=== PATIENT | male | born 2000 | race Caucasian/White ===

== ENCOUNTER 2021-03-14 16:28 | Inpatient (IN) | payer OTHER ==
[2021-03-14 17:49] VITALS: BMI 23.0
[2021-03-14] MEDS ORDERED: MAGNESIUM HYDROX 2400MG/30ML ORAL SUSPENSION 30 ML CUP PO PRN (23:01)
[2021-03-14] MEDS ORDERED: MAG HYDROX/AL HYDROX/SIMETH 30 ML UNIT-DOSE CUP PO PRN (23:01)
[2021-03-14] MEDS ORDERED: ACETAMINOPHEN 325 MG TABLET (FP) PO PRN (23:01)
[2021-03-14] MEDS ORDERED: guaiFENesin 200 MG/10 ML 10 ML UNIT-DOSE CUPS PO PRN (23:01)
[2021-03-14] MEDS ORDERED: LOPERAMIDE HCL 2 MG CAPSULE PO PRN (23:01)
[2021-03-14] MEDS ORDERED: MAGNESIUM CITRATE 300 ML BOTTLE PO PRN (23:01)
[2021-03-14] MEDS ORDERED: P-EPHED 60MG/TRIPROLIDI 2.5MG TABLET PO PRN (23:01)
[2021-03-14] MEDS ORDERED: cloNIDine HCL 0.1 MG TABLET PO ONE (23:05)
[2021-03-15] MEDS ORDERED: cloNIDine HCL 0.1 MG TABLET ONE (00:48)
[2021-03-15] MEDS: MELATONIN 5 MG TABLETS PO SCH (00:51)
[2021-03-15] MEDS: IBUPROFEN 400 MG TABLET (FP) PO PRN (01:55)
[2021-03-15] MEDS ORDERED: TUBERCULIN PPD 5 TU/0.1ML VIAL ID ONE ×2 (02:25→04:16)
[2021-03-15] MEDS: hydrOXYzine PAMOATE 25 MG CAPSULE (FP) PO PRN (02:35)
[2021-03-15] MEDS ORDERED: methaDONE HCL 10 MG TABLET PO SCH (09:15)
[2021-03-15] MEDS ORDERED: methaDONE HCL 10 MG TABLET ONE (09:42)
[2021-03-15] MEDS ORDERED: methaDONE HCL 40 MG DISPERSABLE TABLET ONE (09:42)
[2021-03-15] MEDS ORDERED: methaDONE 40 MG, methaDONE 20 MG PO ONE (09:45)
[2021-03-15 10:46] LABS: HEMATOCRIT 39.4 % (35.4-49); HEMOGLOBIN 13.6 GM/dL (11.7-16.9); MCH 31.9 pg (25.7-33.7); MCHC 34.7 g/dl (32.0-35.9); MEAN CELL VOLUME 92.1 fl (80-96); MEAN PLT VOLUME 7.4 fl (7.5-11.1); PLATELET COUNT 273 10^3/uL (134-434); RBC 4.28 M/mm3 (4.00-5.60); WHITE BLOOD COUNT 3.4 K/mm3 (4.0-10.0)
[2021-03-15 10:56] LABS: BLOOD UREA NITROGEN 14.8 mg/dL (7-18); CALCIUM 8.7 mg/dL (8.5-10.1)
[2021-03-15 10:57] LABS: ALBUMIN 3.1 g/dl (3.4-5.0)
[2021-03-15 11:01] LABS: BILIRUBIN,TOTAL 0.2 mg/dL (0.2-1); CREATININE 0.6 mg/dL (0.55-1.3)
[2021-03-15] MEDS: NICOTINE 21 MG/24 HOURS TOPICAL PATCH TD SCH (11:50)
[2021-03-15] MEDS: PRENATAL VITAMINS W/ FOLIC ACID TABLET (FP) PO SCH (11:50)
[2021-03-15 12:47] LABS: HIV INTERPRETATION NEGATIVE (NEGATIVE)
[2021-03-15] MEDS: busPIRone HCL 10 MG TABLET (FP) PO SCH ×2 (13:48→21:17)
[2021-03-15] MEDS: SERTRALINE HCL 50 MG TABLET (FP) PO SCH (13:48)
[2021-03-15] MEDS: SUVOREXANT 10 MG TABLET PO PRN (21:13)
[2021-03-15] MEDS: THIAMINE HCL 100 MG TABLET (FP) PO SCH (21:17)
[2021-03-15] MEDS: PRAZOSIN HCL 1 MG CAPSULE PO SCH (23:09)
[2021-03-16] MEDS: methaDONE 40 MG, methaDONE 20 MG PO SCH (06:50)
[2021-03-16] MEDS ORDERED: methaDONE HCL 10 MG TABLET ONE (06:50)
[2021-03-16] MEDS ORDERED: methaDONE HCL 40 MG DISPERSABLE TABLET ONE (06:50)
[2021-03-16] MEDS: hydrOXYzine PAMOATE 25 MG CAPSULE (FP) PO PRN (06:52)
[2021-03-16] MEDS: PRENATAL VITAMINS W/ FOLIC ACID TABLET (FP) PO SCH (09:50)
[2021-03-16] MEDS: NICOTINE 21 MG/24 HOURS TOPICAL PATCH TD SCH (09:50)
[2021-03-16] MEDS: NICOTINE 10 MG CARTRIDGE (INHALER) IH PRN ×2 (09:51→16:59)
[2021-03-16] MEDS: busPIRone HCL 10 MG TABLET (FP) PO SCH ×2 (09:51→21:53)
[2021-03-16] MEDS: SERTRALINE HCL 50 MG TABLET (FP) PO SCH (09:51)
[2021-03-16 17:31] LABS: PH,URINE 5.5 (5.0-8.0); URINE APPEARANCE CLEAR; URINE BILIRUBIN NEGATIVE (NEGATIVE); URINE COLOR YELLOW; URINE GLUCOSE (UA) NEGATIVE (NEGATIVE); URINE KETONE NEGATIVE (NEGATIVE); URINE LEUK ESTERASE NEGATIVE (NEGATIVE); URINE NITRITE NEGATIVE (NEGATIVE); URINE PROTEIN NEGATIVE (NEGATIVE); URINE UROBILINOGEN 0.2 mg/dL (0.2-1.0)
[2021-03-16] MEDS ORDERED: PT OWN MED DRAWER 7, Y5N ONE (19:22)
[2021-03-16] MEDS: THIAMINE HCL 100 MG TABLET (FP) PO SCH (21:52)
[2021-03-16] MEDS: PRAZOSIN HCL 1 MG CAPSULE PO SCH (21:53)
[2021-03-16] MEDS: SUVOREXANT 10 MG TABLET PO PRN (21:54)
[2021-03-17] MEDS ORDERED: methaDONE HCL 40 MG DISPERSABLE TABLET ONE (03:17)
[2021-03-17] MEDS ORDERED: methaDONE HCL 10 MG TABLET ONE (03:17)
[2021-03-17] MEDS: methaDONE 40 MG, methaDONE 20 MG PO SCH (06:40)
[2021-03-17] MEDS: NICOTINE 10 MG CARTRIDGE (INHALER) IH PRN ×3 (06:41→19:44)
[2021-03-17] MEDS: PRENATAL VITAMINS W/ FOLIC ACID TABLET (FP) PO SCH (09:54)
[2021-03-17] MEDS: busPIRone HCL 10 MG TABLET (FP) PO SCH ×2 (09:55→21:54)
[2021-03-17] MEDS: NICOTINE 21 MG/24 HOURS TOPICAL PATCH TD SCH (09:55)
[2021-03-17] MEDS: SERTRALINE HCL 50 MG TABLET (FP) PO SCH (09:55)
[2021-03-17] MEDS: hydrOXYzine PAMOATE 25 MG CAPSULE (FP) PO PRN ×2 (09:56→21:54)
[2021-03-17 11:22] LABS: INR 0.94 (0.83-1.09); PROTHROMBIN TIME (PATIENT) 11.6 SEC (9.7-13.0)
[2021-03-17 11:37] LABS: CALCIUM 9.3 mg/dL (8.5-10.1)
[2021-03-17 11:38] LABS: ALBUMIN 3.6 g/dl (3.4-5.0); BLOOD UREA NITROGEN 15.6 mg/dL (7-18)
[2021-03-17 11:41] LABS: CREATININE 0.8 mg/dL (0.55-1.3)
[2021-03-17 11:43] LABS: BILIRUBIN,TOTAL 0.3 mg/dL (0.2-1); TOT PROT 6.9 g/dl (6.4-8.2)
[2021-03-17] MEDS ORDERED: PT OWN MED DRAWER 7, Y5N ONE (20:05)
[2021-03-17] MEDS: SUVOREXANT 10 MG TABLET PO PRN (21:53)
[2021-03-17] MEDS: THIAMINE HCL 100 MG TABLET (FP) PO SCH (21:54)
[2021-03-17] MEDS: PRAZOSIN HCL 1 MG CAPSULE PO SCH (21:54)
[2021-03-18] MEDS ORDERED: methaDONE HCL 10 MG TABLET ONE (03:29)
[2021-03-18] MEDS ORDERED: methaDONE HCL 40 MG DISPERSABLE TABLET ONE (03:29)
[2021-03-18] MEDS: NICOTINE 10 MG CARTRIDGE (INHALER) IH PRN ×3 (06:44→22:36)
[2021-03-18] MEDS: methaDONE 40 MG, methaDONE 20 MG PO SCH (06:45)
[2021-03-18] MEDS: NICOTINE POLACRILEX 2 MG GUM BUC PRN (06:45)
[2021-03-18] MEDS: busPIRone HCL 10 MG TABLET (FP) PO SCH ×2 (09:51→22:34)
[2021-03-18] MEDS: PRENATAL VITAMINS W/ FOLIC ACID TABLET (FP) PO SCH (09:51)
[2021-03-18] MEDS: SERTRALINE HCL 50 MG TABLET (FP) PO SCH (09:51)
[2021-03-18] MEDS: NICOTINE 21 MG/24 HOURS TOPICAL PATCH TD SCH (09:51)
[2021-03-18] MEDS: THIAMINE HCL 100 MG TABLET (FP) PO SCH (22:34)
[2021-03-18] MEDS: PRAZOSIN HCL 1 MG CAPSULE PO SCH (22:34)
[2021-03-18] MEDS: hydrOXYzine PAMOATE 25 MG CAPSULE (FP) PO PRN (22:35)
[2021-03-18] MEDS: MELATONIN 5 MG TABLETS PO SCH (22:35)
[2021-03-19] MEDS ORDERED: methaDONE HCL 10 MG TABLET ONE (03:24)
[2021-03-19] MEDS ORDERED: methaDONE HCL 40 MG DISPERSABLE TABLET ONE (03:25)
[2021-03-19] MEDS: NICOTINE 10 MG CARTRIDGE (INHALER) IH PRN ×2 (06:39→22:19)
[2021-03-19] MEDS: methaDONE 40 MG, methaDONE 20 MG PO SCH (06:40)
[2021-03-19] MEDS: hydrOXYzine PAMOATE 25 MG CAPSULE (FP) PO PRN ×2 (06:40→22:18)
[2021-03-19] MEDS: PRENATAL VITAMINS W/ FOLIC ACID TABLET (FP) PO SCH (09:58)
[2021-03-19] MEDS: NICOTINE 21 MG/24 HOURS TOPICAL PATCH TD SCH (09:59)
[2021-03-19] MEDS: busPIRone HCL 10 MG TABLET (FP) PO SCH ×2 (09:59→22:18)
[2021-03-19] MEDS: SERTRALINE HCL 50 MG TABLET (FP) PO SCH (09:59)
[2021-03-19] MEDS: PRAZOSIN HCL 1 MG CAPSULE PO SCH (22:17)
[2021-03-19] MEDS: THIAMINE HCL 100 MG TABLET (FP) PO SCH (22:18)
[2021-03-20] MEDS ORDERED: methaDONE HCL 10 MG TABLET ONE (02:36)
[2021-03-20] MEDS ORDERED: methaDONE HCL 40 MG DISPERSABLE TABLET ONE (02:37)
[2021-03-20] MEDS: methaDONE 40 MG, methaDONE 20 MG PO SCH (06:45)
[2021-03-20] MEDS: PRENATAL VITAMINS W/ FOLIC ACID TABLET (FP) PO SCH (09:35)
[2021-03-20] MEDS: SERTRALINE HCL 50 MG TABLET (FP) PO SCH (09:36)
[2021-03-20] MEDS: NICOTINE 10 MG CARTRIDGE (INHALER) IH PRN ×3 (09:36→21:36)
[2021-03-20] MEDS: NICOTINE 21 MG/24 HOURS TOPICAL PATCH TD SCH (09:36)
[2021-03-20] MEDS: busPIRone HCL 10 MG TABLET (FP) PO SCH ×2 (09:36→21:28)
[2021-03-20] MEDS: hydrOXYzine PAMOATE 25 MG CAPSULE (FP) PO PRN ×2 (09:37→21:29)
[2021-03-20] MEDS: THIAMINE HCL 100 MG TABLET (FP) PO SCH (21:28)
[2021-03-21] MEDS: PRAZOSIN HCL 1 MG CAPSULE PO SCH ×2 (00:24→21:23)
[2021-03-21] MEDS ORDERED: methaDONE HCL 10 MG TABLET ONE ×2 (03:02→07:53)
[2021-03-21] MEDS ORDERED: methaDONE HCL 40 MG DISPERSABLE TABLET ONE ×2 (03:03→07:54)
[2021-03-21] MEDS: NICOTINE 10 MG CARTRIDGE (INHALER) IH PRN ×2 (07:03→21:29)
[2021-03-21] MEDS ORDERED: methaDONE HCL 10 MG TABLET PO ONE (07:21)
[2021-03-21] MEDS ORDERED: methaDONE 40 MG, methaDONE 20 MG PO ONE (08:00)
[2021-03-21] MEDS: methaDONE 40 MG, methaDONE 20 MG PO SCH (08:06)
[2021-03-21] MEDS: NICOTINE 21 MG/24 HOURS TOPICAL PATCH TD SCH (09:56)
[2021-03-21] MEDS: PRENATAL VITAMINS W/ FOLIC ACID TABLET (FP) PO SCH (09:56)
[2021-03-21] MEDS: busPIRone HCL 10 MG TABLET (FP) PO SCH ×2 (09:57→21:23)
[2021-03-21] MEDS: hydrOXYzine PAMOATE 25 MG CAPSULE (FP) PO PRN ×2 (09:57→21:25)
[2021-03-21] MEDS: SERTRALINE HCL 50 MG TABLET (FP) PO SCH (09:57)
[2021-03-21] MEDS ORDERED: PT OWN MED DRAWER 7, Y5N ONE (19:31)
[2021-03-21] MEDS: THIAMINE HCL 100 MG TABLET (FP) PO SCH (21:23)
[2021-03-21] MEDS ORDERED: SUVOREXANT 10 MG TABLET PO PRN (22:00)
[2021-03-22] MEDS ORDERED: methaDONE HCL 10 MG TABLET ONE (02:50)
[2021-03-22] MEDS ORDERED: methaDONE HCL 40 MG DISPERSABLE TABLET ONE (02:50)
[2021-03-22] MEDS: methaDONE 40 MG, methaDONE 20 MG PO SCH (06:19)
[2021-03-22] MEDS: NICOTINE 10 MG CARTRIDGE (INHALER) IH PRN ×2 (06:22→22:14)
[2021-03-22] MEDS: NICOTINE 21 MG/24 HOURS TOPICAL PATCH TD SCH (09:48)
[2021-03-22] MEDS: SERTRALINE HCL 50 MG TABLET (FP) PO SCH (09:48)
[2021-03-22] MEDS: busPIRone HCL 10 MG TABLET (FP) PO SCH ×2 (09:48→22:13)
[2021-03-22] MEDS: PRENATAL VITAMINS W/ FOLIC ACID TABLET (FP) PO SCH (09:48)
[2021-03-22] MEDS: hydrOXYzine PAMOATE 25 MG CAPSULE (FP) PO PRN ×2 (09:49→22:14)
[2021-03-22] MEDS: PRAZOSIN HCL 1 MG CAPSULE PO SCH (22:11)
[2021-03-22] MEDS: QUEtiapine FUMARATE 50 MG TABLET PO SCH (22:13)
[2021-03-22] MEDS: THIAMINE HCL 100 MG TABLET (FP) PO SCH (22:14)
[2021-03-23] MEDS ORDERED: methaDONE HCL 10 MG TABLET ONE (05:37)
[2021-03-23] MEDS ORDERED: methaDONE HCL 40 MG DISPERSABLE TABLET ONE (05:37)
[2021-03-23] MEDS: methaDONE 40 MG, methaDONE 20 MG PO SCH (06:09)
[2021-03-23] MEDS: NICOTINE 10 MG CARTRIDGE (INHALER) IH PRN ×3 (06:10→21:18)
[2021-03-23] MEDS: NICOTINE POLACRILEX 2 MG GUM BUC PRN (06:10)
[2021-03-23] MEDS: NICOTINE 21 MG/24 HOURS TOPICAL PATCH TD SCH (10:01)
[2021-03-23] MEDS: SERTRALINE HCL 50 MG TABLET (FP) PO SCH (10:01)
[2021-03-23] MEDS: busPIRone HCL 10 MG TABLET (FP) PO SCH ×2 (10:01→21:16)
[2021-03-23] MEDS: PRENATAL VITAMINS W/ FOLIC ACID TABLET (FP) PO SCH (10:01)
[2021-03-23] MEDS: hydrOXYzine PAMOATE 25 MG CAPSULE (FP) PO PRN ×2 (10:02→21:17)
[2021-03-23] MEDS ORDERED: PT OWN MED DRAWER 7, Y5N ONE (21:16)
[2021-03-23] MEDS: THIAMINE HCL 100 MG TABLET (FP) PO SCH (21:16)
[2021-03-23] MEDS: QUEtiapine FUMARATE 50 MG TABLET PO SCH (21:16)
[2021-03-23] MEDS: PRAZOSIN HCL 1 MG CAPSULE PO SCH (21:16)
[2021-03-24] MEDS ORDERED: methaDONE HCL 40 MG DISPERSABLE TABLET ONE (03:17)
[2021-03-24] MEDS ORDERED: methaDONE HCL 10 MG TABLET ONE (03:17)
[2021-03-24] MEDS: methaDONE 40 MG, methaDONE 20 MG PO SCH (07:08)
[2021-03-24] MEDS: NICOTINE 10 MG CARTRIDGE (INHALER) IH PRN ×2 (07:11→21:19)
[2021-03-24] MEDS: busPIRone HCL 10 MG TABLET (FP) PO SCH ×2 (10:22→21:15)
[2021-03-24] MEDS: PRENATAL VITAMINS W/ FOLIC ACID TABLET (FP) PO SCH (10:22)
[2021-03-24] MEDS: SERTRALINE HCL 50 MG TABLET (FP) PO SCH (10:22)
[2021-03-24] MEDS: NICOTINE 21 MG/24 HOURS TOPICAL PATCH TD SCH (10:23)
[2021-03-24] MEDS: hydrOXYzine PAMOATE 25 MG CAPSULE (FP) PO PRN ×2 (10:24→21:16)
[2021-03-24] MEDS ORDERED: PT OWN MED DRAWER 7, Y5N ONE ×2 (19:52→21:15)
[2021-03-24] MEDS: PRAZOSIN HCL 1 MG CAPSULE PO SCH (21:14)
[2021-03-24] MEDS: THIAMINE HCL 100 MG TABLET (FP) PO SCH (21:15)
[2021-03-24] MEDS: QUEtiapine FUMARATE 50 MG TABLET PO SCH (21:15)
[2021-03-25] MEDS ORDERED: methaDONE HCL 40 MG DISPERSABLE TABLET ONE (02:54)
[2021-03-25] MEDS ORDERED: methaDONE HCL 10 MG TABLET ONE (02:54)
[2021-03-25] MEDS: methaDONE 40 MG, methaDONE 20 MG PO SCH (06:21)
[2021-03-25] MEDS: NICOTINE 10 MG CARTRIDGE (INHALER) IH PRN ×2 (06:23→22:27)
[2021-03-25] MEDS: SERTRALINE HCL 50 MG TABLET (FP) PO SCH (09:49)
[2021-03-25] MEDS: busPIRone HCL 10 MG TABLET (FP) PO SCH ×2 (09:49→22:25)
[2021-03-25] MEDS: hydrOXYzine PAMOATE 25 MG CAPSULE (FP) PO PRN ×2 (09:49→22:26)
[2021-03-25] MEDS: PRENATAL VITAMINS W/ FOLIC ACID TABLET (FP) PO SCH (09:49)
[2021-03-25] MEDS: NICOTINE 21 MG/24 HOURS TOPICAL PATCH TD SCH (09:50)
[2021-03-25] MEDS ORDERED: PT OWN MED DRAWER 7, Y5N ONE (19:14)
[2021-03-25] MEDS: PRAZOSIN HCL 1 MG CAPSULE PO SCH (22:25)
[2021-03-25] MEDS: QUEtiapine FUMARATE 50 MG TABLET PO SCH (22:25)
[2021-03-25] MEDS: THIAMINE HCL 100 MG TABLET (FP) PO SCH (22:25)
[2021-03-26] MEDS ORDERED: methaDONE HCL 40 MG DISPERSABLE TABLET ONE (02:57)
[2021-03-26] MEDS ORDERED: methaDONE HCL 10 MG TABLET ONE (02:57)
[2021-03-26] MEDS: methaDONE 40 MG, methaDONE 20 MG PO SCH (06:38)
[2021-03-26] MEDS: SERTRALINE HCL 50 MG TABLET (FP) PO SCH (09:47)
[2021-03-26] MEDS: PRENATAL VITAMINS W/ FOLIC ACID TABLET (FP) PO SCH (09:47)
[2021-03-26] MEDS: hydrOXYzine PAMOATE 25 MG CAPSULE (FP) PO PRN (09:47)
[2021-03-26] MEDS: busPIRone HCL 10 MG TABLET (FP) PO SCH ×2 (09:47→21:32)
[2021-03-26] MEDS: NICOTINE 21 MG/24 HOURS TOPICAL PATCH TD SCH (09:48)
[2021-03-26] MEDS: NICOTINE 10 MG CARTRIDGE (INHALER) IH PRN ×2 (09:49→21:35)
[2021-03-26] MEDS: PRAZOSIN HCL 1 MG CAPSULE PO SCH (21:33)
[2021-03-26] MEDS: THIAMINE HCL 100 MG TABLET (FP) PO SCH (21:33)
[2021-03-26] MEDS: QUEtiapine FUMARATE 50 MG TABLET PO SCH (21:33)
[2021-03-27] MEDS ORDERED: methaDONE HCL 40 MG DISPERSABLE TABLET ONE (03:13)
[2021-03-27] MEDS ORDERED: methaDONE HCL 10 MG TABLET ONE (03:13)
[2021-03-27] MEDS: methaDONE 40 MG, methaDONE 20 MG PO SCH (06:51)
[2021-03-27] MEDS: NICOTINE 10 MG CARTRIDGE (INHALER) IH PRN ×2 (06:52→21:22)
[2021-03-27] MEDS ORDERED: PT OWN MED DRAWER 7, Y5N ONE ×2 (09:33→10:48)
[2021-03-27] MEDS: busPIRone HCL 10 MG TABLET (FP) PO SCH ×2 (10:05→21:21)
[2021-03-27] MEDS: SERTRALINE HCL 50 MG TABLET (FP) PO SCH (10:07)
[2021-03-27] MEDS: PRENATAL VITAMINS W/ FOLIC ACID TABLET (FP) PO SCH (10:45)
[2021-03-27] MEDS: NICOTINE 21 MG/24 HOURS TOPICAL PATCH TD SCH (10:48)
[2021-03-27] MEDS: hydrOXYzine PAMOATE 25 MG CAPSULE (FP) PO PRN (11:06)
[2021-03-27] MEDS: THIAMINE HCL 100 MG TABLET (FP) PO SCH (21:21)
[2021-03-27] MEDS: PRAZOSIN HCL 1 MG CAPSULE PO SCH (21:21)
[2021-03-27] MEDS: QUEtiapine FUMARATE 50 MG TABLET PO SCH (21:21)
[2021-03-28] MEDS: IBUPROFEN 400 MG TABLET (FP) PO PRN (01:39)
[2021-03-28] MEDS: hydrOXYzine PAMOATE 25 MG CAPSULE (FP) PO PRN ×2 (01:39→21:28)
[2021-03-28] MEDS ORDERED: methaDONE HCL 10 MG TABLET ONE (03:05)
[2021-03-28] MEDS ORDERED: methaDONE HCL 40 MG DISPERSABLE TABLET ONE (03:06)
[2021-03-28] MEDS: methaDONE 40 MG, methaDONE 20 MG PO SCH (06:18)
[2021-03-28] MEDS: NICOTINE 10 MG CARTRIDGE (INHALER) IH PRN ×3 (06:20→21:29)
[2021-03-28] MEDS: busPIRone HCL 10 MG TABLET (FP) PO SCH ×2 (09:53→21:28)
[2021-03-28] MEDS: SERTRALINE HCL 50 MG TABLET (FP) PO SCH (09:53)
[2021-03-28] MEDS: NICOTINE 21 MG/24 HOURS TOPICAL PATCH TD SCH (09:53)
[2021-03-28] MEDS: PRENATAL VITAMINS W/ FOLIC ACID TABLET (FP) PO SCH (10:52)
[2021-03-28] MEDS: QUEtiapine FUMARATE 50 MG TABLET PO SCH (21:28)
[2021-03-28] MEDS: THIAMINE HCL 100 MG TABLET (FP) PO SCH (21:28)
[2021-03-28] MEDS: PRAZOSIN HCL 1 MG CAPSULE PO SCH (21:28)
[2021-03-29] MEDS ORDERED: methaDONE HCL 40 MG DISPERSABLE TABLET ONE (05:02)
[2021-03-29] MEDS ORDERED: methaDONE HCL 10 MG TABLET ONE (05:02)
[2021-03-29] MEDS: methaDONE 40 MG, methaDONE 20 MG PO SCH (06:19)
[2021-03-29] MEDS: NICOTINE 10 MG CARTRIDGE (INHALER) IH PRN ×3 (06:20→21:15)
[2021-03-29] MEDS: PRENATAL VITAMINS W/ FOLIC ACID TABLET (FP) PO SCH (09:50)
[2021-03-29] MEDS: busPIRone HCL 10 MG TABLET (FP) PO SCH ×2 (09:50→21:14)
[2021-03-29] MEDS: NICOTINE 21 MG/24 HOURS TOPICAL PATCH TD SCH (09:50)
[2021-03-29] MEDS: SERTRALINE HCL 50 MG TABLET (FP) PO SCH (09:51)
[2021-03-29] MEDS: QUEtiapine FUMARATE 50 MG TABLET PO SCH (21:14)
[2021-03-29] MEDS: PRAZOSIN HCL 1 MG CAPSULE PO SCH (21:14)
[2021-03-29] MEDS: hydrOXYzine PAMOATE 25 MG CAPSULE (FP) PO PRN (21:15)
[2021-03-29] MEDS: THIAMINE HCL 100 MG TABLET (FP) PO SCH (21:15)
[2021-03-30] MEDS ORDERED: methaDONE HCL 10 MG TABLET ONE (03:01)
[2021-03-30] MEDS ORDERED: methaDONE HCL 40 MG DISPERSABLE TABLET ONE (03:01)
[2021-03-30] MEDS: methaDONE 40 MG, methaDONE 20 MG PO SCH (06:06)
[2021-03-30] MEDS: NICOTINE 10 MG CARTRIDGE (INHALER) IH PRN ×2 (06:06→21:58)
[2021-03-30] MEDS: SERTRALINE HCL 50 MG TABLET (FP) PO SCH (10:07)
[2021-03-30] MEDS: NICOTINE 21 MG/24 HOURS TOPICAL PATCH TD SCH (10:07)
[2021-03-30] MEDS: busPIRone HCL 10 MG TABLET (FP) PO SCH ×2 (10:07→21:54)
[2021-03-30] MEDS: hydrOXYzine PAMOATE 25 MG CAPSULE (FP) PO PRN (10:08)
[2021-03-30] MEDS: PRENATAL VITAMINS W/ FOLIC ACID TABLET (FP) PO SCH (10:10)
[2021-03-30] MEDS: THIAMINE HCL 100 MG TABLET (FP) PO SCH (21:54)
[2021-03-30] MEDS: PRAZOSIN HCL 1 MG CAPSULE PO SCH (21:54)
[2021-03-30] MEDS: QUEtiapine FUMARATE 50 MG TABLET PO SCH (21:54)
[2021-03-30] MEDS: IBUPROFEN 400 MG TABLET (FP) PO PRN (21:55)
[2021-03-31] MEDS ORDERED: methaDONE HCL 10 MG TABLET ONE (05:03)
[2021-03-31] MEDS ORDERED: methaDONE HCL 40 MG DISPERSABLE TABLET ONE (05:03)
[2021-03-31] MEDS: methaDONE 40 MG, methaDONE 20 MG PO SCH (06:28)
[2021-03-31] MEDS: NICOTINE 10 MG CARTRIDGE (INHALER) IH PRN ×3 (06:29→21:23)
[2021-03-31] MEDS: SERTRALINE HCL 50 MG TABLET (FP) PO SCH (10:10)
[2021-03-31] MEDS: NICOTINE 21 MG/24 HOURS TOPICAL PATCH TD SCH (10:10)
[2021-03-31] MEDS: PRENATAL VITAMINS W/ FOLIC ACID TABLET (FP) PO SCH (10:10)
[2021-03-31] MEDS: busPIRone HCL 10 MG TABLET (FP) PO SCH ×2 (10:10→21:13)
[2021-03-31] MEDS ORDERED: PT OWN MED DRAWER 7, Y5N ONE (20:33)
[2021-03-31] MEDS: QUEtiapine FUMARATE 50 MG TABLET PO SCH (21:13)
[2021-03-31] MEDS: PRAZOSIN HCL 1 MG CAPSULE PO SCH (21:14)
[2021-03-31] MEDS: IBUPROFEN 400 MG TABLET (FP) PO PRN (21:18)
[2021-03-31] MEDS: hydrOXYzine PAMOATE 25 MG CAPSULE (FP) PO PRN (21:19)
[2021-03-31] MEDS: THIAMINE HCL 100 MG TABLET (FP) PO SCH (22:23)
[2021-04-01] MEDS ORDERED: methaDONE HCL 40 MG DISPERSABLE TABLET ONE (03:51)
[2021-04-01] MEDS ORDERED: methaDONE HCL 10 MG TABLET ONE (03:51)
[2021-04-01] MEDS: methaDONE 40 MG, methaDONE 20 MG PO SCH (06:31)
[2021-04-01] MEDS: NICOTINE 10 MG CARTRIDGE (INHALER) IH PRN ×2 (06:35→21:23)
[2021-04-01] MEDS: PRENATAL VITAMINS W/ FOLIC ACID TABLET (FP) PO SCH (09:56)
[2021-04-01] MEDS: NICOTINE 21 MG/24 HOURS TOPICAL PATCH TD SCH (09:57)
[2021-04-01] MEDS: hydrOXYzine PAMOATE 25 MG CAPSULE (FP) PO PRN ×2 (09:57→21:22)
[2021-04-01] MEDS: SERTRALINE HCL 50 MG TABLET (FP) PO SCH (09:57)
[2021-04-01] MEDS: busPIRone HCL 10 MG TABLET (FP) PO SCH ×2 (09:57→21:22)
[2021-04-01] MEDS: THIAMINE HCL 100 MG TABLET (FP) PO SCH (21:22)
[2021-04-01] MEDS: QUEtiapine FUMARATE 50 MG TABLET PO SCH (21:22)
[2021-04-01] MEDS: PRAZOSIN HCL 1 MG CAPSULE PO SCH (21:23)
[2021-04-01] MEDS: IBUPROFEN 400 MG TABLET (FP) PO PRN (21:24)
[2021-04-02] MEDS ORDERED: methaDONE HCL 40 MG DISPERSABLE TABLET ONE (03:46)
[2021-04-02] MEDS ORDERED: methaDONE HCL 10 MG TABLET ONE (03:46)
[2021-04-02] MEDS: NICOTINE 10 MG CARTRIDGE (INHALER) IH PRN ×2 (06:15→18:58)
[2021-04-02] MEDS: methaDONE 40 MG, methaDONE 20 MG PO SCH (06:16)
[2021-04-02] MEDS: busPIRone HCL 10 MG TABLET (FP) PO SCH ×2 (09:58→21:23)
[2021-04-02] MEDS: PRENATAL VITAMINS W/ FOLIC ACID TABLET (FP) PO SCH (09:58)
[2021-04-02] MEDS: SERTRALINE HCL 50 MG TABLET (FP) PO SCH (09:58)
[2021-04-02] MEDS: NICOTINE 21 MG/24 HOURS TOPICAL PATCH TD SCH (09:59)
[2021-04-02] MEDS: QUEtiapine FUMARATE 50 MG TABLET PO SCH (21:23)
[2021-04-02] MEDS: PRAZOSIN HCL 1 MG CAPSULE PO SCH (21:23)
[2021-04-02] MEDS: hydrOXYzine PAMOATE 25 MG CAPSULE (FP) PO PRN (21:24)
[2021-04-02] MEDS: THIAMINE HCL 100 MG TABLET (FP) PO SCH (21:24)
[2021-04-02] MEDS: IBUPROFEN 400 MG TABLET (FP) PO PRN (21:25)
[2021-04-03] MEDS ORDERED: methaDONE HCL 40 MG DISPERSABLE TABLET ONE (03:10)
[2021-04-03] MEDS ORDERED: methaDONE HCL 10 MG TABLET ONE (03:10)
[2021-04-03] MEDS: methaDONE 40 MG, methaDONE 20 MG PO SCH (06:34)
[2021-04-03] MEDS: hydrOXYzine PAMOATE 25 MG CAPSULE (FP) PO PRN ×2 (06:34→19:57)
[2021-04-03] MEDS: NICOTINE 10 MG CARTRIDGE (INHALER) IH PRN ×2 (06:37→21:25)
[2021-04-03] MEDS: PRENATAL VITAMINS W/ FOLIC ACID TABLET (FP) PO SCH (10:00)
[2021-04-03] MEDS: SERTRALINE HCL 50 MG TABLET (FP) PO SCH (10:00)
[2021-04-03] MEDS: busPIRone HCL 10 MG TABLET (FP) PO SCH ×2 (10:00→21:24)
[2021-04-03] MEDS: NICOTINE 21 MG/24 HOURS TOPICAL PATCH TD SCH (10:01)
[2021-04-03] MEDS: IBUPROFEN 400 MG TABLET (FP) PO PRN ×2 (10:02→19:57)
[2021-04-03] MEDS ORDERED: PT OWN MED DRAWER 7, Y5N ONE (20:19)
[2021-04-03] MEDS: QUEtiapine FUMARATE 50 MG TABLET PO SCH (21:23)
[2021-04-03] MEDS: THIAMINE HCL 100 MG TABLET (FP) PO SCH (21:23)
[2021-04-03] MEDS: PRAZOSIN HCL 1 MG CAPSULE PO SCH (21:24)
[2021-04-04] MEDS: hydrOXYzine PAMOATE 25 MG CAPSULE (FP) PO PRN ×5 (01:00→21:17)
[2021-04-04] MEDS ORDERED: methaDONE HCL 10 MG TABLET ONE (02:37)
[2021-04-04] MEDS ORDERED: methaDONE HCL 40 MG DISPERSABLE TABLET ONE (02:38)
[2021-04-04] MEDS: methaDONE 40 MG, methaDONE 20 MG PO SCH (06:14)
[2021-04-04] MEDS: NICOTINE 10 MG CARTRIDGE (INHALER) IH PRN ×4 (06:16→21:19)
[2021-04-04] MEDS: NICOTINE 21 MG/24 HOURS TOPICAL PATCH TD SCH (10:01)
[2021-04-04] MEDS: SERTRALINE HCL 50 MG TABLET (FP) PO SCH (10:01)
[2021-04-04] MEDS: busPIRone HCL 10 MG TABLET (FP) PO SCH ×2 (10:01→21:17)
[2021-04-04] MEDS: PRENATAL VITAMINS W/ FOLIC ACID TABLET (FP) PO SCH (10:01)
[2021-04-04] MEDS: IBUPROFEN 400 MG TABLET (FP) PO PRN ×2 (10:03→16:51)
[2021-04-04] MEDS ORDERED: PT OWN MED DRAWER 7, Y5N ONE (20:22)
[2021-04-04] MEDS: QUEtiapine FUMARATE 50 MG TABLET PO SCH (21:17)
[2021-04-04] MEDS: PRAZOSIN HCL 1 MG CAPSULE PO SCH (21:17)
[2021-04-04] MEDS: THIAMINE HCL 100 MG TABLET (FP) PO SCH (21:17)
[2021-04-05] MEDS ORDERED: methaDONE HCL 10 MG TABLET ONE (06:01)
[2021-04-05] MEDS ORDERED: methaDONE HCL 40 MG DISPERSABLE TABLET ONE (06:01)
[2021-04-05] MEDS: methaDONE 40 MG, methaDONE 20 MG PO SCH (06:16)
[2021-04-05] MEDS: hydrOXYzine PAMOATE 25 MG CAPSULE (FP) PO PRN ×4 (06:16→21:24)
[2021-04-05] MEDS: busPIRone HCL 10 MG TABLET (FP) PO SCH ×2 (09:49→21:24)
[2021-04-05] MEDS: NICOTINE 21 MG/24 HOURS TOPICAL PATCH TD SCH (09:49)
[2021-04-05] MEDS: SERTRALINE HCL 50 MG TABLET (FP) PO SCH (09:49)
[2021-04-05] MEDS: PRENATAL VITAMINS W/ FOLIC ACID TABLET (FP) PO SCH (09:49)
[2021-04-05] MEDS: IBUPROFEN 400 MG TABLET (FP) PO PRN ×2 (09:51→15:40)
[2021-04-05] MEDS: NICOTINE 10 MG CARTRIDGE (INHALER) IH PRN ×2 (09:52→21:25)
[2021-04-05] MEDS: THIAMINE HCL 100 MG TABLET (FP) PO SCH (21:24)
[2021-04-05] MEDS: QUEtiapine FUMARATE 50 MG TABLET PO SCH (21:24)
[2021-04-05] MEDS: PRAZOSIN HCL 1 MG CAPSULE PO SCH (21:25)
[2021-04-06] MEDS ORDERED: methaDONE HCL 10 MG TABLET ONE (03:06)
[2021-04-06] MEDS ORDERED: methaDONE HCL 40 MG DISPERSABLE TABLET ONE (03:06)
[2021-04-06] MEDS: methaDONE 40 MG, methaDONE 20 MG PO SCH (06:22)
[2021-04-06] MEDS: hydrOXYzine PAMOATE 25 MG CAPSULE (FP) PO PRN ×3 (06:23→21:18)
[2021-04-06] MEDS: NICOTINE 10 MG CARTRIDGE (INHALER) IH PRN ×2 (06:25→21:19)
[2021-04-06] MEDS: busPIRone HCL 10 MG TABLET (FP) PO SCH ×2 (10:11→21:18)
[2021-04-06] MEDS: PRENATAL VITAMINS W/ FOLIC ACID TABLET (FP) PO SCH (10:11)
[2021-04-06] MEDS: NICOTINE 21 MG/24 HOURS TOPICAL PATCH TD SCH (10:11)
[2021-04-06] MEDS: SERTRALINE HCL 50 MG TABLET (FP) PO SCH (10:11)
[2021-04-06] MEDS: IBUPROFEN 400 MG TABLET (FP) PO PRN (10:12)
[2021-04-06] MEDS: QUEtiapine FUMARATE 50 MG TABLET PO SCH (21:18)
[2021-04-06] MEDS: PRAZOSIN HCL 1 MG CAPSULE PO SCH (21:18)
[2021-04-06] MEDS: THIAMINE HCL 100 MG TABLET (FP) PO SCH (21:19)
[2021-04-07] MEDS ORDERED: methaDONE HCL 40 MG DISPERSABLE TABLET ONE (03:25)
[2021-04-07] MEDS ORDERED: methaDONE HCL 10 MG TABLET ONE (03:25)
[2021-04-07] MEDS: NICOTINE 10 MG CARTRIDGE (INHALER) IH PRN ×3 (06:18→21:25)
[2021-04-07] MEDS: methaDONE 40 MG, methaDONE 20 MG PO SCH (06:19)
[2021-04-07] MEDS: hydrOXYzine PAMOATE 25 MG CAPSULE (FP) PO PRN ×4 (06:19→21:25)
[2021-04-07] MEDS: SERTRALINE HCL 50 MG TABLET (FP) PO SCH (09:45)
[2021-04-07] MEDS: NICOTINE 21 MG/24 HOURS TOPICAL PATCH TD SCH (09:45)
[2021-04-07] MEDS: busPIRone HCL 10 MG TABLET (FP) PO SCH ×2 (09:45→21:25)
[2021-04-07] MEDS: PRENATAL VITAMINS W/ FOLIC ACID TABLET (FP) PO SCH (09:45)
[2021-04-07] MEDS: IBUPROFEN 400 MG TABLET (FP) PO PRN ×3 (09:46→21:23)
[2021-04-07] MEDS: QUEtiapine FUMARATE 50 MG TABLET PO SCH (21:25)
[2021-04-07] MEDS ORDERED: PT OWN MED DRAWER 7, Y5N ONE ×2 (21:38→21:39)
[2021-04-07] MEDS: THIAMINE HCL 100 MG TABLET (FP) PO SCH (21:44)
[2021-04-07] MEDS: PRAZOSIN HCL 1 MG CAPSULE PO SCH ×2 (21:44→21:49)
[2021-04-08] MEDS ORDERED: methaDONE HCL 10 MG TABLET ONE (03:14)
[2021-04-08] MEDS ORDERED: methaDONE HCL 40 MG DISPERSABLE TABLET ONE (03:14)
[2021-04-08] MEDS: methaDONE 40 MG, methaDONE 20 MG PO SCH (06:20)
[2021-04-08] MEDS: hydrOXYzine PAMOATE 25 MG CAPSULE (FP) PO PRN ×3 (06:21→21:23)
[2021-04-08] MEDS: NICOTINE 10 MG CARTRIDGE (INHALER) IH PRN ×3 (06:22→21:25)
[2021-04-08] MEDS: SERTRALINE HCL 50 MG TABLET (FP) PO SCH (09:56)
[2021-04-08] MEDS: busPIRone HCL 10 MG TABLET (FP) PO SCH ×2 (09:56→21:23)
[2021-04-08] MEDS: PRENATAL VITAMINS W/ FOLIC ACID TABLET (FP) PO SCH (09:56)
[2021-04-08] MEDS: NICOTINE 21 MG/24 HOURS TOPICAL PATCH TD SCH (09:57)
[2021-04-08] MEDS: THIAMINE HCL 100 MG TABLET (FP) PO SCH (21:23)
[2021-04-08] MEDS: QUEtiapine FUMARATE 50 MG TABLET PO SCH (21:23)
[2021-04-08] MEDS: PRAZOSIN HCL 1 MG CAPSULE PO SCH (21:23)
[2021-04-08] MEDS: IBUPROFEN 400 MG TABLET (FP) PO PRN (21:24)
[2021-04-09] MEDS ORDERED: methaDONE HCL 10 MG TABLET ONE (04:09)
[2021-04-09] MEDS ORDERED: methaDONE HCL 40 MG DISPERSABLE TABLET ONE (04:10)
[2021-04-09] MEDS: hydrOXYzine PAMOATE 25 MG CAPSULE (FP) PO PRN ×3 (06:01→21:13)
[2021-04-09] MEDS: methaDONE 40 MG, methaDONE 20 MG PO SCH (06:01)
[2021-04-09] MEDS: NICOTINE 10 MG CARTRIDGE (INHALER) IH PRN ×3 (06:01→21:15)
[2021-04-09] MEDS: PRENATAL VITAMINS W/ FOLIC ACID TABLET (FP) PO SCH (09:50)
[2021-04-09] MEDS: NICOTINE 21 MG/24 HOURS TOPICAL PATCH TD SCH (09:51)
[2021-04-09] MEDS: busPIRone HCL 10 MG TABLET (FP) PO SCH ×2 (09:51→21:13)
[2021-04-09] MEDS: SERTRALINE HCL 50 MG TABLET (FP) PO SCH (09:51)
[2021-04-09] MEDS: IBUPROFEN 400 MG TABLET (FP) PO PRN ×2 (09:52→21:15)
[2021-04-09] MEDS: PRAZOSIN HCL 1 MG CAPSULE PO SCH (21:12)
[2021-04-09] MEDS: QUEtiapine FUMARATE 50 MG TABLET PO SCH (21:13)
[2021-04-09] MEDS: THIAMINE HCL 100 MG TABLET (FP) PO SCH (21:13)
[2021-04-10] MEDS ORDERED: methaDONE HCL 10 MG TABLET ONE (02:30)
[2021-04-10] MEDS ORDERED: methaDONE HCL 40 MG DISPERSABLE TABLET ONE (02:30)
[2021-04-10] MEDS: NICOTINE 10 MG CARTRIDGE (INHALER) IH PRN ×3 (06:23→22:03)
[2021-04-10] MEDS: hydrOXYzine PAMOATE 25 MG CAPSULE (FP) PO PRN ×4 (06:23→22:02)
[2021-04-10] MEDS: methaDONE 40 MG, methaDONE 20 MG PO SCH (06:23)
[2021-04-10] MEDS: PRENATAL VITAMINS W/ FOLIC ACID TABLET (FP) PO SCH (09:40)
[2021-04-10] MEDS: NICOTINE 21 MG/24 HOURS TOPICAL PATCH TD SCH (09:41)
[2021-04-10] MEDS: SERTRALINE HCL 50 MG TABLET (FP) PO SCH (09:41)
[2021-04-10] MEDS: IBUPROFEN 400 MG TABLET (FP) PO PRN ×2 (09:41→22:03)
[2021-04-10] MEDS: busPIRone HCL 10 MG TABLET (FP) PO SCH ×2 (11:38→22:02)
[2021-04-10] MEDS: QUEtiapine FUMARATE 50 MG TABLET PO SCH (22:02)
[2021-04-10] MEDS: THIAMINE HCL 100 MG TABLET (FP) PO SCH (22:02)
[2021-04-10] MEDS: PRAZOSIN HCL 1 MG CAPSULE PO SCH (22:02)
[2021-04-11] MEDS ORDERED: methaDONE HCL 40 MG DISPERSABLE TABLET ONE (03:27)
[2021-04-11] MEDS ORDERED: methaDONE HCL 10 MG TABLET ONE (03:27)
[2021-04-11] MEDS: NICOTINE 10 MG CARTRIDGE (INHALER) IH PRN (06:38)
[2021-04-11] MEDS: methaDONE 40 MG, methaDONE 20 MG PO SCH (06:38)
[2021-04-11 07:14] VITALS: BP 104/67; PULSE 91; TEMP 97.2
[2021-04-11] MEDS: PRENATAL VITAMINS W/ FOLIC ACID TABLET (FP) PO SCH (09:21)
[2021-04-11] MEDS: SERTRALINE HCL 50 MG TABLET (FP) PO SCH (09:21)
[2021-04-11] MEDS: busPIRone HCL 10 MG TABLET (FP) PO SCH (09:21)
[2021-04-11] MEDS: hydrOXYzine PAMOATE 25 MG CAPSULE (FP) PO PRN (09:22)
[2021-04-11] MEDS: IBUPROFEN 400 MG TABLET (FP) PO PRN (09:23)
[2021-04-11] MEDS: NICOTINE 21 MG/24 HOURS TOPICAL PATCH TD SCH (09:24)
== END 2021-04-11 10:04 | disposition home or self-care (01) | DRG 772 ==
LOC: YASAS 16:28 → Y5N 23:21
PROVIDERS: ADMIT Allergy & Immunology; ATTEND Allergy & Immunology
PROC: HZ42ZZZ Group Counseling for Substance Abuse Treatment, Cognitive-Behavioral (ICD-10-PCS; principal; 2021-03-14)
DX: F11.20 Opioid dependence, uncomplicated (principal); F14.20 Cocaine dependence, uncomplicated; F17.210 Nicotine dependence, cigarettes, uncomplicated; F41.8 Other specified anxiety disorders; F32.9 Major depressive disorder, single episode, unspecified; F43.10 Post-traumatic stress disorder, unspecified; R74.01 Elevation of levels of liver transaminase levels; Z62.810 Personal history of physical and sexual abuse in childhood; Z56.0 Unemployment, unspecified; Z59.00 Homelessness unspecified
CPT/HCPCS: 36415; 80053; 81003; 85027; 85610; 86780; 87389; 93005; 93010; C9803; J0735; U0003; U0005